=== PATIENT | female | born 1980 | race Caucasian/White ===

== ENCOUNTER 2021-11-08 11:57 | Outpatient (CLI) | payer SELFPAY ==
--- NOTE | ~2021-11-08 | XR_ITS ---
EXAMINATION: XR hysterosalpingogram DATE: 11/08/2021 12:56 INDICATION: Fertility testing TECHNIQUE: Multiple fluoroscopic images were obtained during contrast infusion into the endometrial c anal of the uterus by the primary physician. Fluoroscopy exposure time was 2.1 minutes. A total of 6 fluoroscopic images were obtained. FINDINGS: The visualized portion of the uterine cavity at the fundus demonstrates normal morphology. There is extensive myometrial intravasation of contrast with venous drainage extending through a right-sided p arametrial veins. The no contrast opacification of the fallopian tubes with no intraperitoneal spilla ge of contrast either on the left or right. IMPRESSION: 1. Nonvisualization of the left and right fallopian tubes consistent with occlusion with myometrial i ntravasation and venous drainage of the injected contrast. Reviewed, dictated and finalized at location A. IMPRESSION: 1. Nonvisualization of the left and right fallopian tubes consistent with occlu kayleen with myometrial intravasation and venous drainage of the injected contrast .
== END 2021-11-08 11:58 | disposition home or self-care (01) ==
PROVIDERS: PCP Family Medicine; Visit Provider Obstetrics & Gynecology Gynecology
DX: Z31.41 Encounter for fertility testing (principal)
CPT/HCPCS: 58340; 74740

== ENCOUNTER 2022-12-21 19:02 | Emergency (ER) | payer BC, SELFPAY ==
--- NOTE | ~2022-12-21 | US_ITS ---
EXAMINATION: US renal BI DATE: 12/21/2022 20:03 INDICATION: Flank pain TECHNIQUE: Multiple grayscale and Doppler ultrasound images of the kidneys were obtained. COMPARISON: None. FINDINGS: The right kidney measures 10.6 x 3.7 x 4.9 cm. The left kidney measures 10.4 x 5.5 x 5.8 cm . The kidneys demonstrate normal parenchymal echogenicity. There is no hydronephrosis. The bladder is decompressed. IMPRESSION: 1. Normal kidneys without hydronephrosis. Reviewed, dictated and finalized at location F.
[2022-12-21 19:24] VITALS: PULSE 83; RESP 20; TEMP 36.2; O2SAT 100
[2022-12-21] MEDS: METOCLOPRAMIDE HCL INJ 10 MG/2 ML VIAL IV PUSH (20:05)
[2022-12-21] MEDS: SODIUM CHLORIDE 0.9% IV 1,000 ML 999 ML IV CONT (20:05)
--- NOTE | 2022-12-21 20:05 | ED.GENADULT ---
HPI - General Adult General Chief complaint: Back Pain/Injury Stated complaint: flank pain Time Seen by Provider: 12/21/22 19:34 History of Present Illness HPI narrative: Patient 42-year-old female who presents the emergency department with chief complaint of right-sided flank pain. Patient reports that she is currently and has been undergoing IVF and has been followed with ultrasounds that have shown a normal progressing . Patient reports no vaginal bleeding reports that she has had urinary frequency and small amounts of urine and feels as though she is not completely voiding. The patient states that she had no prior history of kidney stones reports that she is extremely nauseated patient reports he is unable to get comfortable in any position Related Data Allergies Allergy/AdvReac Type Severity Reaction Status Date / Time acyclovir Allergy Severe syncopal Verified 12/21/22 19:03 episode Review of Systems Review of Systems: A 10 system review of systems was completed on the patient and is negative except for what is stated in the HPI. Nursing and ancillary documentation was reviewed. PMFSH Family History Family History Mother Asthma Social History Social History Social History: Smoking status: Never smoker Second hand tobacco smoke exposure: No Alcohol intake: current Alcohol use details: Occasionally Substance use: never Substance use type: does not use Living arrangements: with family Occupation/Education: occupation Gender identity (if verbalized by the patient): Female Sexual Orientation (if Verbalized by the Patient): Straight or Heterosexual Exam Narrative: GENERAL: Well-appearing, well-nourished, and in mild acute pain distress. HEAD: Normocephalic, atraumatic. EYES: PERRLA and EOMI. ENT: Nares clear, no rhinorrhea or epistaxis. Mucous membranes moist. NECK: Supple. CHEST: Clear to auscultation. No respiratory distress. HEART: Regular rate and rhythm. No murmur heard. Normal peripheral pulses. ABDOMEN: Soft, nontender, nondistended, normal active bowel sounds. EXTREMITIES: Normal range of motion. No edema. SKIN: Warm, dry, no rash. NEURO: No focal deficits. Alert and oriented x3. PSYCH: Normal mood and affect. Course Vital Signs Vital signs: Vital Signs Temperature 36.2 C L 12/21/22 19:24 Pulse Rate 83 12/21/22 19:24 Respiratory Rate 20 12/21/22 19:24 Pulse Oximetry 100 12/21/22 19:24 Oxygen Delivery Room Air 12/21/22 19:24 Temperature 36.2 C L 12/21/22 19:24 Pulse Rate 89 12/21/22 20:18 Respiratory Rate 20 12/21/22 20:18 Pulse Oximetry 100 12/21/22 20:18 Oxygen Delivery Room Air 12/21/22 19:24 Medical Decision Making MDM Narrative Medical decision making narrative: Differential diagnosis includes kidney stone, hematuria, UTI, Laboratory studies were obtained which showed a urinalysis with greater than 100 RBCs. CBC showed a white count of 14.8 electrolytes are within normal limits creatinine was 0.8 and BUN was 7 liver enzymes were normal Renal ultrasound was obtained because the patient is currently that showed no evidence of hydronephrosis. Patient's pain is completely resolved at this time most likely the patient has passed a kidney stone given the fact that she has greater than 100 RBCs and clinical presentation was that of renal colic. Follow-up precautions were discussed with the patient Vital Signs Vital Signs: Vital Signs Temperature 36.2 C L 12/21/22 19:24 Pulse Rate 83 12/21/22 19:24 Respiratory Rate 20 12/21/22 19:24 Pulse Oximetry 100 12/21/22 19:24 Oxygen Delivery Room Air 12/21/22 19:24 Temperature 36.2 C L 12/21/22 19:24 Pulse Rate 89 12/21/22 20:18 Respiratory Rate 20 12/21/22 20:18 Pulse Oximetry 100
[2022-12-21] MEDS: MORPHINE SULFATE (*CRX) 4 MG/ML INJ IV PUSH (20:07)
[2022-12-21 20:18] VITALS: PULSE 89; RESP 20; O2SAT 100
[2022-12-21 20:30] VITALS: O2SAT 100
[2022-12-21 20:30] LABS: Hematocrit 40.5 % (37.0-47.0); Hemoglobin 13.4 g/dL (12.0-15.0); Mean Corpuscular HGB Conc 33.1 g/dl (32-36); Mean Corpuscular Hemoglobin 29.9 pg (26-34); Mean Corpuscular Volume 90.4 fl (80-100); Mean Platelet Volume 11.2 fl (7.4-10.4); Platelet Count Result 211 k/mm3 (150-375); Red Blood Count 4.48 M/mm3 (4.2-5.4); Red Cell Distribution Width 12.6 % (11.5-14.5); White Blood Count 14.8 K/mm3 (4.5-10.0)
[2022-12-21 20:33] LABS: Alanine Aminotransferase 17 U/L (6-35); Alkaline Phosphatase 96 U/L (38-126); Anion Gap 12 mmol/L (8-16); Aspartate Amino Transferase 20 U/L (14-36); Bilirubin,Total 0.5 mg/dL (0.2-1.3); Blood Urea Nitrogen 7 mg/dL (7-17); Carbon Dioxide 18 mmol/L (22-30); Chloride 107 mmol/L (98-107); Estimated CRCL calculation 79 ml/min; Estimated Glomerular Filt Rate > 60; Glucose 137 mg/dL (65-110); Potassium 3.5 mmol/L (3.4-5.0); Sodium 137 mmol/L (137-145)
[2022-12-21 20:40] LABS: Appearance Urine Turbid (Clear); Bacteria Urine Rare /hpf; Bilirubin Urine 1+ (Negative); Blood Urine 3+ (Negative); Calcium Oxalate Crystals Urine Present /hpf; Color Urine Dark Yellow (Yellow); Glucose Urine UA Negative (Negative); Ketones Urine Trace mg/dL (Negative); Leukocyte Esterase Ur Trace LEU/UL (Negative); Nitrate Urine Negative (Negative); Protein Urine 1+ mg/dL (Negative); RBC Urine >100 /hpf (0-2); Specific Grav Ur 1.025 (1.001-1.035); Squamous Epithelial Cell Urine Occasional /hpf (Few); WBC Urine 0-5 /hpf
[2022-12-21 20:41] LABS: Add Urine Microscopic? YES
[2022-12-21 20:54] LABS: Band Neutrophils Percent 2 % (0-6); Lymphocytes Absolute Manual 0.59 K/mm3 (1.1-4.5); Monocytes Absolute Manual 0.14 K/mm3 (0.1-0.90); Monocytes Percent Manual 1 % (3-9); Neutrophils Absolute Manual 14.06 K/mm3 (1.7-7.2); Neutrophils Percent Manual 93 % (46-73); Platelet Estimate Adequate (Adequate); Total Cells Counted 100
[2022-12-21 20:55] LABS: Schistocytes None Seen (NORMAL)
[2022-12-21 21:41] VITALS: O2SAT 98
[2022-12-21 21:43] VITALS: BP 101/59; PULSE 89; RESP 20; O2SAT 100
[2022-12-21] MEDS: HYDROcodone/acetaminophen (*CRX) 5-325 MG TABLET 1 TAB PO (21:58)
== END 2022-12-21 22:20 | disposition home or self-care (01) ==
PROVIDERS: Emergency Provider Emergency Medicine; PCP Family Medicine
DX: N23 Unspecified renal colic (principal)
CPT/HCPCS: 36415; 76775; 80053; 81001; 85025; 96361; 96374; 96375; 99284; A9270; J2270; J2765; J7030

== ENCOUNTER 2023-06-24 05:13 | Inpatient (IN) | payer BC, SELFPAY ==
[2023-06-24] VITALS (153 sets, daily range): BP systolic 101–149; BP diastolic 58–97; PULSE 67–159; RESP 16; TEMP 36.1–36.8; O2SAT 98–100
[2023-06-24] MEDS: LACTATED RINGERS 1,000 ML 125 ML IV CONT ×3 (05:59→14:03)
[2023-06-24] MEDS: OXYTOCIN 30 UNITS/NS 500 ML 30 UNITS/500 ML BAG 6 UNITS IV CONT (06:00)
[2023-06-24] MEDS: AMPICILLIN 2 GM/NS 100 ML 2 GM/100 ML BAG IVPB (06:00)
[2023-06-24 06:05] LABS: Basophils Percent Auto 0.3 % (0.2-1.2); Eosinophils Absolute Auto 0.1 K/mm3 (0-0.3); Eosinophils Percent Auto 1.5 % (0-4.4); Hematocrit 40.2 % (37.0-47.0); Immature Granulocyte Absolute 0.04 K/mm3 (0.00-0.031); Immature Granulocyte Percent A 0.5 % (0-0.5); Lymphocytes Absolute Auto 1.87 K/mm3 (0.9-3.2); Lymphocytes Percent Auto 24.7 % (18.3-44.2); Mean Corpuscular HGB Conc 32.3 g/dl (32-36); Mean Corpuscular Hemoglobin 28.5 pg (26-34); Mean Corpuscular Volume 88.2 fl (80-100); Monocytes Absolute Auto 0.4 K/mm3 (0.1-0.6); Monocytes Percent Auto 5.2 % (2.6-8.5); Neutrophils Absolute Auto 5.1 K/mm3 (1.3-6.7); Neutrophils Percent Auto 67.8 % (45.5-73.1); Platelet Count Result 202 k/mm3 (150-375); Red Blood Count 4.56 M/mm3 (4.2-5.4); Red Cell Distribution Width 14.1 % (11.5-14.5); White Blood Count 7.6 K/mm3 (4.5-10.0)
--- NOTE | 2023-06-24 06:47 | LDADM ---
This patient, Miladis Tee, was admitted to Labor/Delivery/Recovery 107 on 06/24/23 at 05:13. Plans for labor, pain management and were discussed with patient. Patient/family oriented to hospital policies and general routines including ID bracelet, bed and alarms, visiting hours, pain management, procedures, bathroom and other care routines, personal items, smoking policy, room service/diet and guest tray routines, security routines, and visiting hours. Patient/Family are encouraged to report perceived risks to care and to ask questions if they do not understand what they are told or what they should do. See OBIX for further documentation.
[2023-06-24 06:55] LABS: Glucose Point of Care 66 mg/dl (65-105)
[2023-06-24 07:30] LABS: HIV 1/2 Ab P24 Ag Result Negative (Negative)
[2023-06-24] MEDS: AMPICILLIN 1 GM/NS 50 ML 1 GM/50 ML BAG IVPB ×3 (10:10→18:37)
[2023-06-24 10:43] LABS: Glucose Point of Care 69 mg/dl (65-105)
--- NOTE | 2023-06-24 11:46 | WPDOBADMIT ---
Obstetrics - Admit Note Admission Note: record reviewed. No pertinent additions to the history and/or any subsequent changes in the physical findings that are not consistent with the expected course of the were found. Additions to the history and/or subsequent changes in the physical findings follow. Here for MIL at 39 wks with GDM. Cervix 2/80/-2 Anterior. AROM with clear fluid. FHTs cat 1
--- NOTE | 2023-06-24 11:47 | WPDANESEPP ---
Anes - Eval Pre Procedure Procedure: management of labor pain Date/Time: 06/24/23 11:47 Surgeon: Carl Preop Diagnosis: pain during labor Pre Op Diagnosis: IOL Patient Data Age: 43 Gender: F Height: Weight: Last Vital Signs Temp 97.6 F 06/24/23 10:45 Pulse 88 06/24/23 11:31 BP 140/81 06/24/23 11:31 Pulse Ox 100 06/24/23 11:47 O2 Del Method Room Air 06/24/23 06:43 Allergies Allergy/AdvReac Type Severity Reaction Status Date / Time acyclovir Allergy Severe syncopal Verified 06/20/23 14:35 episode Home Medications Medication Instructions Recorded Confirmed Type albuterol sulfate 90 mcg/actuation 1 inh inhalation Q4H PRN shortness 03/25/22 06/20/23 Rx aerosol inhaler of breath or wheezing #8.5 grams Classic 1 tab-cap PO DAILY 06/20/23 06/20/23 History aspirin 81 mg tablet 81 mg PO DAILY 06/20/23 06/20/23 History famotidine 20 mg tablet (Pepcid) 20 mg PO DAILY 06/20/23 06/20/23 History Laboratory Tests 06/24/23 06/24/23 06/24/23 05:49 06:26 06:45 WBC 7.6 K/mm3 (4.5-10.0) RBC 4.56 M/mm3 (4.2-5.4) Hgb 13.0 g/dL (12.0-15.0) Hct 40.2 % (37.0-47.0) MCV 88.2 fl (80-100) MCH 28.5 pg (26-34) MCHC 32.3 g/dl (32-36) RDW 14.1 % (11.5-14.5) Plt Count 202 k/mm3 (150-375) MPV 12.0 H fl (7.4-10.4) Immature Gran % (Auto) 0.5 % (0-0.5) Neut % (Auto) 67.8 % (45.5-73.1) Lymph % (Auto) 24.7 % (18.3-44.2) [place] % (Auto) 5.2 % (2.6-8.5) Eos % (Auto) 1.5 % (0-4.4) Baso % (Auto) 0.3 % (0.2-1.2) Lymph # (Auto) 1.87 K/mm3 (0.9-3.2) [place] # (Auto) 0.4 K/mm3 (0.1-0.6) Eos # (Auto) 0.1 K/mm3 (0-0.3) Baso # (Auto) 0.0 K/mm3 (0.0-0.1) Abs Immat Gran (auto) 0.04 H K/mm3 (0.00-0.031) Absolute Neuts (auto) 5.1 K/mm3 (1.3-6.7) Absolute Nucleated RBC 0.000 K/mm3 (0.0-0.012) Nucleated RBC % 0.0 % (0.0-0.2) POC Capillary Glucose 66 mg/dl (65-105) RPR Pending HIV 1&2 Ab/P24 Ag 4thGn Negative (Negative) Blood Type AB Positive Antibody Screen Negative 06/24/23 10:38 WBC RBC Hgb Hct MCV MCH MCHC RDW Plt Count MPV Immature Gran % (Auto) Neut % (Auto) Lymph % (Auto) [place] % (Auto) Eos % (Auto) Baso % (Auto) Lymph # (Auto) [place] # (Auto) Eos # (Auto) Baso # (Auto) Abs Immat Gran (auto) Absolute Neuts (auto) Absolute Nucleated RBC Nucleated RBC % POC Capillary Glucose 69 mg/dl (65-105) RPR HIV 1&2 Ab/P24 Ag 4thGn Blood Type Antibody Screen Patient hx anesthesia problems: none Family hx anesthesia problems: none Results Review: All pre-operative results and documents have been reviewed as part of the pre-operative evaluation. [facility] Past Medical History Medical History Asthma Chronic GERD Family History Family History Mother Asthma Social History Social History Social History: Smoking status: Never smoker Second hand tobacco smoke exposure: No Alcohol intake: current Alcohol use details: Occasionally Substance use: never Substance use type: does not use Do You Feel Safe in your Home?: Yes Lack of Transportation: No Lack of Food: Never True Current Housing: I Have Housing Concerned About Future Housing: No Difficulty Paying Gas/Electric Bills: No Difficulty Paying for Meds: No Currently Unemployed: YES Education: Don't Know Difficulty w/ Child
[2023-06-24 14:15] LABS: Glucose Point of Care 80 mg/dl (65-105)
[2023-06-24] MEDS: ONDANSETRON INJ 4 MG/2 ML VIAL IV PUSH (14:39)
[2023-06-24 17:35] LABS: Glucose Point of Care 65 mg/dl (65-105)
[2023-06-24] MEDS: FAMOTIDINE 20 MG/2 ML VIAL (18:30)
--- NOTE | 2023-06-24 20:00 | PM.OBPRVD ---
OB - Vaginal Delivery Note Procedure Delivery date: 06/24/23 Events: Gestational Diabetes and Other (marginal cord insertion) Induction method: AROM and Per Pitocin Protocol Delivery monitor: External FHT and Internal Uterine Route of delivery: Laceration Description: Perineal - 2nd Degree Delivery repair: vicryl (3-0) Specimen: Yes (placenta appears velementous insertion) Quantitative Blood Loss (ml): 100 Anesthesia type: Epidural Disposition: Floor Complications: No immediate complications [place] Baby Date of : 06/24/23 Weeks of gestation at delivery: 39 Infant gender: Female presentation: vertex position: Right Occiput Anterior Placenta delivery description: Spontaneous and Abnormal Configuration Cord Vessel Description: 3 Vessels and Delayed Cord Clamping
--- NOTE | 2023-06-24 20:02 | PM.OBDSVD ---
DS: Admitting Diagnosis Discharge Date 06/26/23 Admitting Diagnosis IUP 39 wks GDM marginal cord insertion DS: Discharge Diagnosis Discharge Diagnosis (1) (normal spontaneous vaginal delivery): Code(s): O80 - Encounter for full-term uncomplicated delivery Status: Acute OB - DS: Summary OB Procedures : NST, Ultrasound and Other (GDM mgmt) OB Procedures Intrapartum: Spontaneous Vag Delivery OB Procedures: : None Peripartum Data Delivery Method: Natural Vaginal Laceration Description: Perineal - 2nd Degree complications: none Status at Discharge Functional status at discharge: independent ambulation Overall status at discharge: patient is progressing back to baseline Time Spent with Patient Time attestation: Total time spent providing and/or coordinating discharge services: DS: Data Data Completed and Pending Labs on day of discharge: Labs from last 24 hours 06/24/23 06/24/23 06/24/23 17:32 14:09 10:38 WBC RBC Hgb Hct MCV MCH MCHC RDW Plt Count MPV Immature Gran % (Auto) Neut % (Auto) Lymph % (Auto) [place] % (Auto) Eos % (Auto) Baso % (Auto) Lymph # (Auto) [place] # (Auto) Eos # (Auto) Baso # (Auto) Abs Immat Gran (auto) Absolute Neuts (auto) Absolute Nucleated RBC Nucleated RBC % POC Capillary Glucose 65 80 69 RPR HIV 1&2 Ab/P24 Ag 4thGn Blood Type Antibody Screen 06/24/23 06/24/23 06/24/23 06:45 06:26 05:49 WBC 7.6 RBC 4.56 Hgb 13.0 Hct 40.2 MCV 88.2 MCH 28.5 MCHC 32.3 RDW 14.1 Plt Count 202 MPV 12.0 H Immature Gran % (Auto) 0.5 Neut % (Auto) 67.8 Lymph % (Auto) 24.7 [place] % (Auto) 5.2 Eos % (Auto) 1.5 Baso % (Auto) 0.3 Lymph # (Auto) 1.87 [place] # (Auto) 0.4 Eos # (Auto) 0.1 Baso # (Auto) 0.0 Abs Immat Gran (auto) 0.04 H Absolute Neuts (auto) 5.1 Absolute Nucleated RBC 0.000 Nucleated RBC % 0.0 POC Capillary Glucose 66 RPR Pending HIV 1&2 Ab/P24 Ag 4thGn Negative Blood Type AB Positive Antibody Screen Negative Discharge Plan Discharge Attending physician on discharge: Marisol Henry Discharging Clinician: Marisol Henry Anticipated Discharge Date/Time: 06/26/23 20:03 Patient Disposition: Home, Self-Care Activity: may shower and pelvic rest Diet: regular Patient Instructions: Antibiotic Form Stand Alone Forms: General Discharge Information Follow-up/Referrals: Marisol Henry MD [Physician] - 6 Weeks Discharge Medications: New norethindrone (contraceptive) 0.35 mg tablet 0.35 mg PO DAILY Qty: 84 3RF Continued albuterol sulfate 90 mcg/actuation HFA aerosol inhaler 1 inh inhalation Q4H PRN (Reason: shortness of breath or wheezing) Qty: 8.5 1RF famotidine [Pepcid] 20 mg Tablet 20 mg PO DAILY Classic 1 tab-cap PO DAILY Discontinued aspirin 81 mg Tablet 81 mg PO DAILY Date of admission: 06/24/23 05:13 Primary Care Provider: Radha Meléndez Admitting Provider: Marisol Henry Attending physician on admission: Marisol Henry Condition: Stable
[2023-06-24] MEDS: OXYTOCIN 30 UNITS/NS 500 ML 30 UNITS/500 ML BAG 125 UNITS IV CONT (20:16)
[2023-06-24] MEDS: IBUPROFEN 600 MG TABLET PO (21:16)
[2023-06-24] MEDS: ACETAMINOPHEN 325 MG TABLET 650 MG PO (21:42)
[2023-06-24] MEDS: BENZOCAINE 20% AER SPR (*SP) 56 GM CAN 1 SPRAY TOPICAL (22:03)
[2023-06-24] MEDS: WITCH HAZEL 40 PADS 1 PAD TOPICAL (22:04)
[2023-06-25] MEDS: IBUPROFEN 600 MG TABLET PO ×3 (04:03→17:14)
[2023-06-25] MEDS: ACETAMINOPHEN 325 MG TABLET 650 MG PO ×3 (04:03→19:49)
[2023-06-25 05:45] LABS: Hematocrit 30.9 % (37.0-47.0); Hemoglobin 9.9 g/dL (12.0-15.0)
[2023-06-25 07:44] VITALS: BP 94/58; PULSE 83; RESP 16; TEMP 36.6; O2SAT 97
--- NOTE | 2023-06-25 08:03 | PM.OBPNVD ---
OB - PN: Subj Subjective Date/time seen: 06/25/23 08:03 Patient comments: no complaints, pain well controlled and other (syncope when got up with nurse at 0400) [place] baby status: doing well OB - PN: Obj Data Labs 06/25/23 05:13 Labs: Laboratory Results - last 24 hr 06/24/23 06/24/23 06/24/23 10:38 14:09 17:32 Hgb Hct POC Capillary Glucose 69 80 65 06/25/23 05:13 Hgb 9.9 L D Hct 30.9 L POC Capillary Glucose OB - PN A/P Plan day: 1 Plan: routine care Comments: H/H lower than expected but not informed of any excess bleeding, fundus firm ambulate with assist next few times due to syncopal episode Time Spent With Patient Time: Total time spent is greater than 50% in coordination of care (as documented) at patient's floor/unit and/or counseling patient: Exam : Bimanual exam- vagina & uterus: other (Uterus firm, nt @U)
--- NOTE | 2023-06-25 09:03 | WPDANLDPN2 ---
Anes-Prog Note L&D Date/Time: 06/25/23 09:03 Comfortable throughout: labor and delivery Neuraxial method: epidural Epidural/Spinal procedure site: clean & non-tender Neuro status: Neuro function grossly intact. Cardiovascular status: normal Respiratory status: normal Airway patency: baseline Mental status: baseline Post-Op hydration status: normal Vital Signs: Last Vital Signs Temp 97.8 F 06/25/23 07:44 Pulse 83 06/25/23 07:44 Resp 16 06/25/23 07:44 BP 94/58 L 06/25/23 07:44 Pulse Ox 97 06/25/23 07:44 O2 Del Method Room Air 06/24/23 06:43 Pain score (VAS): 0 I/O: Intake & Output 06/24/23 06/25/23 06/25/23 23:59 07:59 15:59 Output Total 400 Balance -400 Post-procedural complaints: none Patient feedback: Patient satisfied with anesthetic care.
[2023-06-25] MEDS: DOCUSATE SODIUM 100 MG CAPSULE PO ×2 (09:14→17:13)
[2023-06-25] MEDS: POLYSACCHARIDE IRON COMPLEX 150 MG CAPSULE PO ×2 (11:52→17:14)
[2023-06-25 12:04] VITALS: BP 98/58; PULSE 87; RESP 16; TEMP 36.7; O2SAT 98
--- NOTE | 2023-06-25 12:04 | PC.NURSE ---
0910 Patient declined her Iron PO ordered by Dr. Henry, she would like to take her own because it does not constipate her, RN spoke with Dr. Henry and she is ok with her taking her own iron if the elemental iron is equivocal to the iron ordered. [id number] Patient's father brought in her iron and the dose is only 20mg per tablet, patient is now going to take the iron ordered by Dr. Henry along with stool softener.
[2023-06-25 19:34] VITALS: BP 117/66; PULSE 79; RESP 16; TEMP 36.1; O2SAT 99
[2023-06-26] MEDS: DOCUSATE SODIUM 100 MG CAPSULE PO (07:38)
[2023-06-26] MEDS: IBUPROFEN 600 MG TABLET PO (07:38)
[2023-06-26] MEDS: POLYSACCHARIDE IRON COMPLEX 150 MG CAPSULE PO (07:38)
[2023-06-26 08:00] VITALS: BP 125/71; PULSE 76; RESP 16; TEMP 36.1; O2SAT 98
--- NOTE | 2023-06-26 09:13 | PM.OBPNVD ---
OB - PN: Subj Subjective Date/time seen: 06/26/23 09:13 Patient comments: no complaints and pain well controlled baby status: doing well OB - PN: Obj Data Labs 06/25/23 05:13 OB - PN A/P Plan day: 2 Plan: routine care, discharge home, follow up 6 weeks and other (micronor for bc) Time Spent With Patient Time: Total time spent is greater than 50% in coordination of care (as documented) at patient's floor/unit and/or counseling patient: Exam : Bimanual exam- vagina & uterus: other (Uterus firm, nt @U)
--- NOTE | 2023-06-26 11:24 | PC.NURSE ---
[id number] Introductions were made, then consulted with patient to assess needs related to . Discussed with mother her?plans to feed?her infant and the?experience so far. Mother is demonstrating her ability to independently latch , denies any nipple discomfort after the initial latch and is responsively . Mother rates her breast pain 7 . The left nipple has one pinch injury from an earlier breastfeed. latches deeply with a nice rounded cheek line, rocking jaw motion with deep drops in the jaw representing good swallowing. Recommended the gel pads to protect her nipples from rubbing her gown for comfort. Mother instructed to call if her nipples are misshaped after a . Mother describes her nipples after a feeding as rockwell and elongated denying misshaping. is currently meeting outcomes for weight, output, jaundice, blood sugar and feeding frequencies of 8-12 times in 24 hours. Mother is encouraged to call for assistance if her infant doesn?t latch, pain with latching, questions or concerns. Resources provided for inpatient and outpatient services with the feeding sheet, mom/baby guide and name written on the communication board. Mother voiced understanding of information and will call if there is a request for assistance. Reported to the Primary RN.
--- NOTE | 2023-06-26 12:11 | PC.NURSE ---
Patient viewed the discharge video Mother & Baby Care, The First Two Weeks . Patient was given the opportunity and encouraged to ask questions. Patient verbalized understanding of information shared and has been given the mother/baby guide for home reference.
[2023-06-26] MEDS: MEASLES,MUMPS,RUBELLA VACCINE 0.5 ML VIAL SUB-Q (13:27)
[2023-06-27 12:36] LABS: Rapid Plasma Reagin Non-Reactive (NonReactive)
[2023-06-27 12:49] VITALS: BP 148/80; PULSE 82; RESP 18; TEMP 36.7; O2SAT 100
== END 2023-06-26 14:18 | disposition home or self-care (01) | DRG 807 ==
LOC: ANHLDR 20:03 → ANHOB2 23:58
PROVIDERS: Admitting Provider Obstetrics & Gynecology Gynecology; PCP Family Medicine; Visit Provider Obstetrics & Gynecology Gynecology
DX: O24.429 Gestational diabetes mellitus in childbirth, unspecified control (principal); Z37.0 Single live birth; O99.824 Streptococcus B carrier state complicating childbirth; O70.1 Second degree perineal laceration during delivery; Z3A.39 39 weeks gestation of pregnancy; O43.123 Velamentous insertion of umbilical cord, third trimester; R55 Syncope and collapse
CPT/HCPCS: 36415; 82948; 85014; 85018; 85025; 86592; 86703; 86850; 86900; 86901; 88307; 90710; A9270; G0432; J0290; J2405; J2590; J2795; J7120

== ENCOUNTER 2023-06-27 13:08 | Outpatient (CLI) | payer BC, SELFPAY ==
[2023-06-27 13:30] VITALS: BP 142/77; PULSE 74
[2023-06-27 13:31] VITALS: BP 131/82; PULSE 71
[2023-06-27 13:36] LABS: Basophils Percent Auto 0.4 % (0.2-1.2); Eosinophils Absolute Auto 0.4 K/mm3 (0-0.3); Hemoglobin 9.7 g/dL (12.0-15.0); Immature Granulocyte Absolute 0.05 K/mm3 (0.00-0.031); Immature Granulocyte Percent A 0.5 % (0-0.5); Lymphocytes Absolute Auto 1.49 K/mm3 (0.9-3.2); Lymphocytes Percent Auto 15.2 % (18.3-44.2); Mean Corpuscular HGB Conc 31.3 g/dl (32-36); Mean Corpuscular Hemoglobin 28.6 pg (26-34); Mean Corpuscular Volume 91.4 fl (80-100); Mean Platelet Volume 11.4 fl (7.4-10.4); Monocytes Absolute Auto 0.5 K/mm3 (0.1-0.6); Monocytes Percent Auto 4.9 % (2.6-8.5); Neutrophils Absolute Auto 7.3 K/mm3 (1.3-6.7); Platelet Count Result 192 k/mm3 (150-375); Red Blood Count 3.39 M/mm3 (4.2-5.4); Red Cell Distribution Width 14.4 % (11.5-14.5); White Blood Count 9.8 K/mm3 (4.5-10.0)
[2023-06-27 13:45] VITALS: BP 132/73; PULSE 77
[2023-06-27 13:48] LABS: Alanine Aminotransferase 16 U/L (6-35); Albumin Level 2.9 g/dL (3.5-5.1); Alkaline Phosphatase 139 U/L (38-126); Anion Gap 4 mmol/L (4-12); Aspartate Amino Transferase 31 U/L (14-36); Bilirubin,Total 0.5 mg/dL (0.2-1.3); Blood Urea Nitrogen 6 mg/dL (7-17); Calcium 8.2 mg/dL (8.4-10.2); Carbon Dioxide 23 mmol/L (22-30); Chloride 113 mmol/L (98-107); Estimated Glomerular Filt Rate > 60; Glucose 82 mg/dL (65-110); Potassium 3.6 mmol/L (3.4-5.0); Sodium 140 mmol/L (137-145); Uric Acid 7.3 mg/dL (2.5-7.5)
[2023-06-27 14:00] VITALS: BP 124/69; PULSE 75
[2023-06-27 14:15] VITALS: BP 132/71; PULSE 71
--- NOTE | 2023-06-27 14:33 | PC.NURSE ---
1430- SPoke with Dr. Henry regarding labs and BP's, orders to discharge home. patient to take BP at home and call if develops any symptoms.
== END 2023-06-27 14:34 | disposition home or self-care (01) ==
LOC: ANHOBOP 13:17 → ANHOBPP 13:18
PROVIDERS: PCP Family Medicine; Visit Provider Obstetrics & Gynecology Gynecology
DX: O16.5 Unspecified maternal hypertension, complicating the puerperium (principal)
CPT/HCPCS: 36415; 80053; 84550; 85025; 99199